=== PATIENT | female | born 1975 | race Caucasian/White ===

== ENCOUNTER 2017-07-18 14:19 | Emergency (ER) | payer OTHER ==
[2017-07-18 15:27] VITALS: BP 118/78
--- NOTE | 2017-07-18 15:42 | Diagnostic Imaging Report ---
JOSE ROLDAN (CHANDLER) - ER [facility] [address] [facility].[address] [address] Report Submission Date: Jul 18, 2017 3:01:07 PM CDT Patient Study Name: LUIS GALEANA Date: Jul 18, 2017 2:36:50 PM CDT Modality Type: CR Gender: F Description: UPPER EXTREMITY : 77 Institution: [facility] Physician: JOSE ROLDAN (CHANDLER) - ER Examination: Plain film wrist History: Injury Comparison exams: None available Findings: 3 views the wrist demonstrate normal cortical margins. No fracture. No dislocation. No soft tissue abnormality. Impression: No acute osseous abnormality Electronically signed on Jul 18, 2017 3:01:07 PM CDT by: Pako SAXENA
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
== END 2017-07-18 15:26 ==
LOC: ED 14:19
DX: M25.532 Pain in left wrist (principal)
CPT/HCPCS: 73110; 99283; 99284